=== PATIENT | male | born 1995 | race American Indian/Alaskan Native ===

== ENCOUNTER 2020-05-13 21:59 | Emergency (ER) | payer SELFPAY ==
[2020-05-13 22:22] VITALS: BP 121/78
--- NOTE | 2020-05-13 23:03 | XRay Report ---
CHEST PA AND LATERAL VIEWS INDICATION: Chest pain. COMPARISON: None. FINDINGS: Support devices: None. Heart: Within normal limits. Lungs/Pleura: No acute pulmonary or pleural findings. IMPRESSION: 1. No acute findings. Signer Name: Isai Figueredo MD Signed: 05/13/2020 10:58 PM Workstation Name: [id number]
--- NOTE | 2020-05-14 00:18 | Emergency Department Report ---
ED General Adult HPI - General Chief complaint: Upper Respiratory Infection Stated complaint: VOMITING HEADACHE PUI?: Yes Time Seen by Provider: 05/14/20 00:17 Source: patient, RN notes reviewed Mode of arrival: Ambulatory Limitations: No Limitations - History of Present Illness Initial comments: Please note that for the entire history and physical examination, I had on complete personal protective equipment. The patient is a 24-year-old gentleman. He is not known to myself previously. He does not have a local primary care doctor. He does not have chronic medical conditions. He occasionally smokes cannabis and black in [place]. Presents to the ER with a complaint of sore throat, pain with swallowing, body aches, headaches, hot and cold chills, cough, chest wall pressure with coughing, malaise and fatigue. Symptoms present for 2 to 3 days. Positive travel. He may have been exposed to COVID. He is not certain. There is no complaint of posterior neck pain, loss of consciousness, vomiting, irritative and obstructive urinary symptoms. He has not had loss of taste or smell that he is aware of. -: Gradual, days(s) Quality: aching Consistency: constant Improves with: rest Worsens with: movement - Related Data Previous Rx's Medication Instructions Recorded Last Taken Type Acetaminophen [Non-Aspirin Extra 500 mg PO Q6HR PRN #30 tablet 05/14/20 Unknown Rx Strength] Albuterol Sulfate [Proair 90 mcg IH Q4HR PRN #2 aer.pow.ba 05/14/20 Unknown Rx Respiclick] Ondansetron [Zofran Odt] 4 mg PO Q8HR PRN #20 tab.rapdis 05/14/20 Unknown Rx Allergies Allergy/AdvReac Type Severity Reaction Status Date / Time coconut Allergy Unknown Verified 05/13/20 22:20 ED Review of Systems ROS: Stated complaint: VOMITING HEADACHE Other details as noted in HPI Constitutional: fever, malaise, weakness Eyes: denies: eye discharge ENT: congestion Respiratory: cough Cardiovascular: denies: syncope Gastrointestinal: denies: abdominal pain Genitourinary: denies: dysuria Musculoskeletal: arthralgia, myalgia Skin: denies: lesions Neurological: denies: confusion ED Past Medical Hx - Past Medical History Previous Medical History?: No - Surgical History Past Surgical History?: No - Social History Smoking Status: Never Smoker Substance Use Type: Marijuana - Medications Home Medications: Home Medications Medication Instructions Recorded Confirmed Last Taken Type Acetaminophen [Non-Aspirin Extra 500 mg PO Q6HR PRN #30 tablet 05/14/20 Unknown Rx Strength] Albuterol Sulfate [Proair 90 mcg IH Q4HR PRN #2 aer.pow.ba 05/14/20 Unknown Rx Respiclick] Ondansetron [Zofran Odt] 4 mg PO Q8HR PRN #20 tab.rapdis 05/14/20 Unknown Rx ED Physical Exam - General Limitations: No Limitations General appearance: alert, in no apparent distress - Head Head exam: Present: atraumatic, normocephalic - Eye Eye exam: Present: normal appearance, PERRL, EOMI. Absent: nystagmus - ENT ENT exam: Present: normal exam, normal orophraynx, mucous membranes moist, normal external ear exam - Neck Neck exam: Present: normal inspection, full ROM. Absent: tenderness, meningismus - Respiratory Respiratory exam: Present: normal lung sounds bilaterally. Absent: respiratory distress, wheezes, rales, rhonchi, stridor, decreased breath sounds - Cardiovascular Cardiovascular Exam: Present: regular rate, normal rhythm, normal heart sounds. Absent: bradycardia, tachycardia, irregular rhythm, systolic murmur, diastolic murmur, rubs, gallop - GI/Abdominal GI/Abdominal exam: Present: soft, normal bowel sounds. Absent: distended, tenderness, guarding, rebound, rigid, pulsatile mass - Rectal Rectal exam: Present: deferred - Extremities Exam Extremities exam: Present: normal inspection, full ROM, normal capillary refill, other (2+ pulses noted in the bilateral upper and lower extremities. There is no palpable cord. negative Homans sign. Muscular compartments are soft. The pelvis is stable.). Absent: pedal edema, calf tenderness - Back Exam Back exam: Present: normal inspection, full ROM. Absent: tenderness, CVA tenderness (R), CVA tenderness (L), paraspinal tenderness, vertebral tenderness - Neurological Exam Neurological exam: Present: alert, oriented X3, normal gait, other (No facial droop. Tongue midline. Extraocular movements intact bilaterally. Facial sensation intact to light touch in V1, V2, V3 distribution bilaterally. 5 and a 5 strength in 4 extremities. Sensation intact to light touch in 4 extremities.). Absent: motor sensory deficit - Psychiatric Psychiatric exam: Present: normal affect, normal mood - Skin Skin exam: Present: warm, dry, intact, normal color. Absent: rash ED Course Vital Signs 05/13/20 05/14/20 22:19 01:13 Temperature 99.6 F Pulse Rate 87 Respiratory 18 18 Rate Blood Pressure 121/78 O2 Sat by Pulse 98 Oximetry ED Medical Decision Making - Lab Data Vital Signs 05/13/20 05/14/20 22:19 01:13 Temperature 99.6 F Pulse Rate 87 Respiratory 18 18 Rate Blood Pressure 121/78 O2 Sat by Pulse 98 Oximetry - Radiology Data Radiology results: report reviewed, image reviewed Print Report Referring Physician: SARWAT ROMEO Patient Name: FLORINDA SHAHID Date of : 1995 Sex: Male Report Date: 2020-05-13 Report Status: [place] [address] XRay Report Signed Patient: FLORINDA SHAHID MR#: [id number] : 1995 Acct:[id number] Age/Sex: 24 / M ADM Date: 05/13/20 Loc: ED Attending Dr: Ordering Physician: TYRONE MONDRAGON Date of Service: 05/13/20 Procedure(s): XR chest routine 2V Accession Number(s): [id number] cc: TYRONE MONDRAGON Fluoro Time In Minutes: CHEST PA AND LATERAL VIEWS INDICATION: Chest pain. COMPARISON: None. FINDINGS: Support devices: None. Heart: Within normal limits. Lungs/Pleura: No acute pulmonary or pleural findings. IMPRESSION: 1. No acute findings. Signer Name: Isai Figueredo MD Signed: 05/13/2020 10:58 PM Workstation Name: [id number] Transcribed By: RAMANDEEP Dictated By: Isai Figueredo MD Electronically Authenticated By: Isai Figueredo MD Signed Date/Time: 05/13/202257 DD/ 57 - Medical Decision Making Differential diagnosis, including but not limited to: Viral syndrome, COVID Assessment and plan: 24-year-old gentleman on days 2/3 of nonspecific constitutional symptoms, likely viral syndrome, cannot exclude COVID. He is afebrile, with reassuring vital signs, saturating at 98% on room air, with a clear chest x-ray, GCS of 15, and benign and unremarkable physical examination. Patient ambulated on room air, on a portable pulse oximeter, and had minimal desaturation without significant symptoms. I had on complete personal protective equipment while examining the patient. He was counseled appropriately regarding the nature of viral syndrome, and possible COVID. We discussed expectant management. Patient is suitable for trial of outpatient management at this time Return precautions are reviewed. Critical care attestation.: If time is entered above; I have spent that time in minutes in the direct care of this critically ill patient, excluding procedure time. ED Disposition Clinical Impression: Viral syndrome, Suspected COVID-19 virus infection Disposition: - TO HOME OR SELFCARE Is pt being admited?: No Does the pt Need Aspirin: No Condition: Stable Instructions: COVID-19 Additional Instructions: As we discussed, the patient most likely has novel coronavirus/COVID. the symptoms of COVID will typically persist 10 to 14 days. There is no cure at this time for COVID. Please make certain to self isolate and self quarantine, follow-up with an outpatient primary care doctor within the next 3 to 5 days, wash hands with soap and water frequently, thoroughly and often, patient may take the prescribed medications as needed and directed. Advance diet and drink plenty of fluids as tolerated. Avoid interactions with the very elderly, very young, and those with chronic medical conditions. Return to the emergency room right away with new pain, worsening pain, migration of pain, projectile vomiting, change in mental status, confusion, inability to tolerate liquid feeds, new, worsened or different symptoms not present on the initial emergency room evaluation. Referrals: GURMEET OVIEDO MD [Primary Care Provider] - 3-5 Days DENISE GARCIA MD [Staff Physician] - 3-5 Days [facility] [Provider Group] - 3-5 Days Forms: Work/School Release Form(ED)
[2020-05-14] MEDS ORDERED: ACETAMINOPHEN 325 MG TAB PO ONE (00:43)
[2020-05-14] MEDS ORDERED: ONDANSETRON 4 MG ODT TAB PO ONE (00:43)
== END 2020-05-14 02:25 | disposition home or self-care (01) ==
LOC: ED 21:59
DX: B34.8 Other viral infections of unspecified site (principal); F12.10 Cannabis abuse, uncomplicated; Z91.018 Allergy to other foods; Z20.828 Contact with and (suspected) exposure to other viral communicable diseases
CPT/HCPCS: 71046; Q0162